=== PATIENT | female | born 1995 | race Hispanic/Latino ===

== ENCOUNTER 2022-04-09 12:57 | Inpatient (IN) | payer BC, MEDICAID ==
[~2022-04-09] VITALS: Ht 149.9 cm; Wt 70.8 kg
[2022-04-09] MEDS ORDERED: AMPICILLIN 1GM+NS 50ML 50 ML IV SCH (14:00)
[2022-04-09] MEDS ORDERED: LACTATED RINGERS 1000ML 1,000 ML IV PRN (14:00)
[2022-04-09] MEDS ORDERED: OXYTOCIN-LR 20 UNITS/1000 ML 1,000 ML IV SCH (14:00)
[2022-04-09] MEDS ORDERED: AMPICILLIN 2GM+NS 100ML 100 ML IV SCH (14:00)
[2022-04-09 14:20] LABS: HEMATOCRIT 36.7 % (36-48); MEAN CORPUSCULAR HEMOGLOBIN 28.9 pg (27.0-33.0); MEAN CORPUSCULAR VOLUME 87.6 fL (79-99); RED BLOOD CELL COUNT(AUTO) 4.19 MIL/uL (4.00-5.50); RED CELL DISTRIBUTION WIDTH 13.2 % (11.0-15.5); WHITE BLOOD COUNT (AUTO) 10.9 K/uL (4.8-10.8)
[2022-04-09] MEDS ORDERED: MEPERIDINE-PF 25 MG/ML SYG ONE (14:47)
[2022-04-09] MEDS ORDERED: MEPERIDINE-PF 25 MG/ML SYG IVP ONE (15:00)
[2022-04-09] MEDS ORDERED: PROMETHAZINE HCL 25 MG/ML 1ML AMPULE IM ONE (15:00)
[2022-04-09] MEDS: OXYTOCIN-LR 20 UNITS/1000 ML 1,000 ML IV SCH ×2 (15:15→15:45)
[2022-04-09] MEDS ORDERED: LIDOCAINE HCL 1% 10 ML VIAL ONE (15:17)
[2022-04-09] MEDS ORDERED: BENZOCAINE/LANOLIN/ALOE VERA 60 ML AEROSOL TP PRN (16:00)
[2022-04-09] MEDS ORDERED: IBUPROFEN 600 MG TABLET PO PRN (16:00)
[2022-04-09] MEDS ORDERED: MEASLES/MUMPS/RUBELLA VACCINE, LIVE 0.5 ML/VIAL SQ PRN (16:00)
[2022-04-09] MEDS ORDERED: LANOLIN 30GM OINTMENT TP PRN (16:00)
[2022-04-09] MEDS ORDERED: DIPH,PERTUSS(ACELL),TET VAC/PF 0.5 ML VIAL IM PRN (16:00)
[2022-04-09] MEDS ORDERED: ACETAMINOPHEN WITH CODEINE 1 TAB TAB PO PRN (16:00)
[2022-04-09] MEDS ORDERED: WITCH HAZEL 1 PAD TP PRN (16:00)
[2022-04-09] MEDS ORDERED: ACETAMINOPHEN 325 MG TAB PO PRN (16:00)
[2022-04-09] MEDS ORDERED: IBUPROFEN 100 MG/5 ML SUSP UDCUP PO PRN (17:30)
[2022-04-09 19:20] VITALS: BP 101/57
[2022-04-09] MEDS ORDERED: DOCUSATE SODIUM 100 MG CAP PO SCH (21:00)
[2022-04-09] MEDS: DOCUSATE NA 100MG/10ML UDCUP PO SCH (22:03)
[2022-04-09] MEDS: ACETAMINOPHEN 325 MG/10.15ML UDCUP PO PRN (22:03)
[2022-04-09 23:15] VITALS: BP 109/64
[2022-04-10 03:13] VITALS: BP 88/61
[2022-04-10 06:33] LABS: HEMATOCRIT 30.3 % (36-48); MEAN CORPUSCULAR HEMOGLOBIN 29.9 pg (27.0-33.0); MEAN CORPUSCULAR HGB CONC 33.3 g/dL (32.0-36.0); MEAN CORPUSCULAR VOLUME 89.6 fL (79-99); RED BLOOD CELL COUNT(AUTO) 3.38 MIL/uL (4.00-5.50); RED CELL DISTRIBUTION WIDTH 13.2 % (11.0-15.5); WHITE BLOOD COUNT (AUTO) 13.6 K/uL (4.8-10.8)
[2022-04-10 07:11] VITALS: BP 92/58
[2022-04-10] MEDS: ACETAMINOPHEN 325 MG/10.15ML UDCUP PO PRN (07:28)
[2022-04-10] MEDS: DOCUSATE NA 100MG/10ML UDCUP PO SCH (08:52)
[2022-04-10 11:11] VITALS: BP 98/67
[2022-04-10 16:47] VITALS: BP 113/70
== END 2022-04-10 18:55 | disposition home or self-care (01) | DRG 807 ==
LOC: EDH 12:57 → LDH 12:58 → OBSVTOIN 12:58 → WSH 19:10
PROVIDERS: ADMIT Obstetrics & Gynecology; ATTEND Obstetrics & Gynecology
PROC: 10E0XZZ Delivery of Products of Conception, External Approach (ICD-10-PCS; principal; 2022-04-09)
PROC: 0UQGXZZ Repair Vagina, External Approach (ICD-10-PCS; 2022-04-09)
PROC: 3E0234Z Introduction of Serum, Toxoid and Vaccine into Muscle, Percutaneous Approach (ICD-10-PCS; 2022-04-09)
DX: O99.824 Streptococcus B carrier state complicating childbirth (principal); Z37.0 Single live birth; O71.4 Obstetric high vaginal laceration alone; Z23 Encounter for immunization; Z3A.37 37 weeks gestation of pregnancy
CPT/HCPCS: 36415; 85027; 86592; 86850; 86900; 86901; 87340; 90715; G0378; J0290; J2175; J2590; J3490